=== PATIENT | female | born 1950 | race American Indian/Alaskan Native ===

== ENCOUNTER 2018-07-20 18:42 | Inpatient (IN) | payer MEDICARE ==
[2018-07-20 19:06] VITALS: BMI 27.0
--- NOTE | 2018-07-20 21:52 | CP.PCM.HP ---
History of Present Illness - History of Present Illness History of Present Illness: PMD: None Chief complaint: Left side weakness The patient was seen and examined in the Rehab unit with her present HPI: The Hx was obtained from patient, her and after review of the medical records. She is a 68 years old female with hx of HTN treated with Garlic tablets, admitted at the [facility] on the 07/19/18 with 2 days of left upper and lower extremity weakness. She was diagnosed with an acute CVA. She is transferred to the [facility] for continued care and rehabilitation.She refers some improvement in the weakness of the left upper and lower extremities. PMH: HTN; PSH: Fibroid removal SH: No smoking; no illegal drug use; occasional glass of wine; Live with FH: Mother with Dm and HTN Allergies: NKDA Seasonal Allergies Medication: Reviewed Present on Admission - Present on Admission Any Indicators Present on Admission: No History of DVT/PE: No History of Uncontrolled Diabetes: No Urinary Catheter: No Decubitus Ulcer Present: No Review of Systems - Constitutional Constitutional: absent: Anorexia, Chills, Fever, Headache - EENT Eyes: Requires Corrective Lenses. absent: Diplopia, Discharge, Floaters Ears: absent: Decreased Hearing, Ear Discharge, Tinnitus Nose/Mouth/Throat: absent: Epistaxis, Nasal Congestion, Nasal Discharge, Sinus Pressure - Cardiovascular Cardiovascular: absent: Chest Pain, Dyspnea, Edema, Lightheadedness - Respiratory Respiratory: absent: Cough, Dyspnea, Wheezing, Stridor - Gastrointestinal Gastrointestinal: absent: Abdominal Pain, Cramping, Diarrhea, Nausea, Vomiting - Genitourinary Genitourinary: absent: Dysuria, Flank Pain, Urinary Frequency - Musculoskeletal Musculoskeletal: Muscle Weakness. absent: Arthralgias - Integumentary Integumentary: absent: Skin Ulcer, Sores, Striae, Swelling - Neurological Neurological: Focal Weakness. absent: Abnormal Speech, Confusion, Dizziness, Headaches, Weakness - Psychiatric Psychiatric: absent: Anxiety, Depression, Panic Attacks - Endocrine Endocrine: absent: Palpitations, Polydipsia, Polyphagia, Polyuria - Hematologic/Lymphatic Hematologic: absent: Easy Bleeding, Easy Bruising Past Patient History - Past Medical History & Family History Past Medical History?: Yes - Past Social History Smoking Status: Never Smoked Chewing Tobacco Use: No Cigar Use: No Alcohol: Occasional Drugs: Denies Home Situation {Lives}: With Family - CARDIAC Hx Hypertension: Yes - PULMONARY Hx Respiratory Disorders: No - NEUROLOGICAL Hx Neurological Disorder: No - HEENT Hx HEENT Problems: No - RENAL Hx Chronic Kidney Disease: No - ENDOCRINE/METABOLIC Hx Endocrine Disorders: No - HEMATOLOGICAL/ONCOLOGICAL Hx Blood Disorders: No - INTEGUMENTARY Hx Dermatological Problems: No - MUSCULOSKELETAL/RHEUMATOLOGICAL Hx Musculoskeletal Disorders: No - GASTROINTESTINAL Hx Gastrointestinal Disorders: No - GENITOURINARY/GYNECOLOGICAL Hx Genitourinary Disorders: No - PSYCHIATRIC Hx Psychophysiologic Disorder: No - SURGICAL HISTORY Hx Surgeries: No - ANESTHESIA Hx Anesthesia: No Meds Allergies/Adverse Reactions: Allergies Allergy/AdvReac Type Severity Reaction Status Date / Time sesonal allergy Allergy SNEEZING Uncoded 07/20/18 18:58 Physical Exam - Constitutional Appears: No Acute Distress - Head Exam Head Exam: ATRAUMATIC, NORMAL INSPECTION, NORMOCEPHALIC - Eye Exam Eye Exam: EOMI, Normal appearance Pupil Exam: Miosis, NORMAL ACCOMODATION - ENT Exam ENT Exam: Normal Exam - Neck Exam Neck exam: Positive for: Full Rom, Lymphadenopathy, Thyromegaly - Respiratory Exam Respiratory Exam: Clear to Auscultation Bilateral. absent: Rales, Rhonchi, Whee zes - GI/Abdominal Exam GI & Abdominal Exam: Normal Bowel Sounds, Soft. absent: Hypoactive Bowel Sounds, Mass, Tenderness - Rectal Exam Rectal Exam: Deferred - Extremities Exam Extremities exam: Positive for: normal inspection. Negative for: calf tenderness, pedal edema - Back Exam Back exam: NORMAL INSPECTION. 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 Moderate stenosis at the distal right cerevical artery also seen. CT angiogram of Neck Status: Report reviewed by me Additional comment: IMPRESSION No evidence of cervical large vessel occlusion or high- grade stenosis with O% stenosis at the ICA origin MRI BRAIN with out Contrast Status: Report reviewed by me Additional comment: IMPRESSION: Small acute right ventral medullary infarct. Assessment & Plan - Assessment and Plan (Free Text) Plan: 68 years old female with hx of HTN treated with Garlic tablets, admitted at the [facility] on the 07/19/18 with 2 days of left upper and lower extremity weakness. She was diagnosed with an acute CVA. She is transferred to the [facility] for continued care and rehabilitation.She refers some improvement in the weakness of the left upper and lower extremities. #. Acute Right CVA with left side weakness - Consult Dr Zheng Youth Coordinator - Consult Dr Hernandes Neurology - ASA - The patient refuses lipitor - OT/PT #. HTN Uncontrolled - Amlodipine - Lisinopril - Follow blood pressures - follow Electrolytes an d #. DVT prophylaxis with Lovenox #. Code Status: Full - Date & Time Date: 07/20/18 Time: 21:52
[2018-07-21 06:27] LABS: BASO # 0.1 K/uL (0.0-0.2); BASO % 0.8 % (0.0-2.0); EOS # 0.3 K/uL (0.0-0.7); EOS % 3.6 % (0.0-4.0); HEMOGLOBIN 12.3 g/dL (12.0-16.0); LYMPH # 3.6 K/uL (1.0-4.3); LYMPH % 40.5 % (20.0-40.0); MEAN CELL VOLUME 82.2 fl (81.0-99.0); MEAN CORPUSCULAR HEMOGLOBIN 28.9 pg (27.0-31.0); MEAN CORPUSCULAR HGB CONC 35.2 g/dL (33.0-37.0); MEAN PLATELET VOLUME 8.5 fl (7.2-11.7); MONO # 0.6 K/uL (0.0-0.8); MONO % 6.4 % (0.0-10.0); NEUT # 4.3 K/uL (1.8-7.0); NEUT % 48.7 % (50.0-75.0); NRBC % 0.1 % (0.0-0.0); RBC 4.24 Mil/uL (3.80-5.20); RED CELL DISTRIBUTION WIDTH 14.9 % (11.5-14.5); WHITE BLOOD COUNT 8.8 K/uL (4.8-10.8)
[2018-07-21 06:43] LABS: CALCIUM 9.7 mg/dL (8.4-10.2); GFR NON-AFRICAN AMERICAN > 60
[2018-07-21 06:48] LABS: INR 1.1; PROTHROMBIN TIME 12.5 Seconds (9.8-13.1)
[2018-07-21 06:49] LABS: PARTIAL THROMBOPLASTIN TIME 32.5 Seconds (25.6-37.1)
[2018-07-21 06:59] LABS: BLOOD UREA NITROGEN 18 mg/dl (7-17)
[2018-07-21] MEDS: Enoxaparin 40 mg Syringe SC SCH (08:47)
--- NOTE | 2018-07-21 19:45 | CP.PCM.CON ---
History of Present Illness - History of Present Illness History of Present Illness: 68 year old female with diagnosis of Acute CVa, htn history of fibroid removal admitted for Acute rehab Review of Systems - Constitutional Constitutional: Weakness - Musculoskeletal Musculoskeletal: Limited Range of Motion, Muscle Weakness Past Patient History - Past Medical History & Family History Past Medical History?: Yes - Past Social History Smoking Status: Never Smoked Chewing Tobacco Use: No Cigar Use: No Alcohol: Occasional Drugs: Denies Home Situation {Lives}: With Family - CARDIAC Hx Hypertension: Yes - PULMONARY Hx Respiratory Disorders: No - NEUROLOGICAL Hx Neurological Disorder: No - HEENT Hx HEENT Problems: No - RENAL Hx Chronic Kidney Disease: No - ENDOCRINE/METABOLIC Hx Endocrine Disorders: No - HEMATOLOGICAL/ONCOLOGICAL Hx Blood Disorders: No - INTEGUMENTARY Hx Dermatological Problems: No - MUSCULOSKELETAL/RHEUMATOLOGICAL Hx Musculoskeletal Disorders: No - GASTROINTESTINAL Hx Gastrointestinal Disorders: No - GENITOURINARY/GYNECOLOGICAL Hx Genitourinary Disorders: No - PSYCHIATRIC Hx Psychophysiologic Disorder: No - SURGICAL HISTORY Hx Surgeries: No - ANESTHESIA Hx Anesthesia: No Meds Allergies/Adverse Reactions: Allergies Allergy/AdvReac Type Severity Reaction Status Date / Time No Known Allergies Allergy Verified 07/21/18 03:12 - Medications Medications: Current Medications Amlodipine Besylate (Norvasc) 10 mg PO DAILY [facility] Last Admin: 07/21/18 08:47 Dose: 10 mg Aspirin (Ecotrin) 81 mg PO DAILY [facility] Last Admin: 07/21/18 08:47 Dose: 81 mg Enoxaparin Sodium (Lovenox) 40 mg SC DAILY [facility]; Protocol Last Admin: 07/21/18 08:47 Dose: 40 mg Lisinopril (Zestril) 10 mg PO DAILY [facility] Last Admin: 07/21/18 08:39 Dose: 10 mg Physical Exam - Constitutional Appears: Well, No Acute Distress - Head Exam Head Exam: ATRAUMATIC, NORMAL INSPECTION, NORMOCEPHALIC - Eye Exam Eye Exam: EOMI, Normal appearance Pupil Exam: NORMAL ACCOMODATION, PERRL - ENT Exam ENT Exam: Mucous Membranes Moist, Normal Exam - Neck Exam Neck exam: Positive for: Normal Inspection - Respiratory Exam Respiratory Exam: Clear to Auscultation Bilateral, NORMAL BREATHING PATTERN - Cardiovascular Exam Cardiovascular Exam: REGULAR RHYTHM - GI/Abdominal Exam GI & Abdominal Exam: Normal Bowel Sounds - Rectal Exam Rectal Exam: NORMAL INSPECTION - Exam External exam: NORMAL EXTERNAL EXAM - Extremities Exam Extremities exam: Positive for: normal inspection Additional comments: muscle strength 3/5 - Back Exam Back exam: NORMAL INSPECTION - Neurological Exam Neurological exam: Alert, CN II-XII Intact - Psychiatric Exam Psychiatric exam: Normal Affect, Normal Mood - Skin Skin Exam: Dry, Normal Color, Warm Results - Vital Signs Recent Vital Signs: Last Vital Signs Temp 97.3 F L 07/21/18 08:38 Pulse 90 07/21/18 08:47 Resp 22 07/21/18 08:38 BP 178/81 H 07/21/18 08:47 Pulse Ox 98 07/21/18 08:38 - Labs Result Diagrams: 07/21/18 05:30 07/21/18 05:30 Labs: Laboratory Results - last 24 hr 07/21/18 07/21/18 07/21/18 05:30 05:30 05:30 WBC 8.8 RBC 4.24 Hgb 12.3 Hct 34.8 MCV 82.2 MCH 28.9 MCHC 35.2 RDW 14.9 H Plt Count 266 MPV 8.5 Neut % (Auto) 48.7 L Lymph % (Auto) 40.5 H Guthrie % (Auto) 6.4 Eos % (Auto) 3.6 Baso % (Auto) 0.8 Neut # (Auto) 4.3 Lymph # (Auto) 3.6 Guthrie # (Auto) 0.6 Eos # (Auto) 0.3 Baso # (Auto) 0.1 PT 12.5 INR 1.1 APTT 32.5 Sodium 143 Potassium 3.6 Chloride 105 Carbon Dioxide 30 Anion Gap 12 BUN 18 H Creatinine 0.9 Est GFR ( Amer) > 60 Est GFR (Non-Af Amer) > 60 Random Glucose 107 H Calcium 9.7 Assessment & Plan (1) CVA (cerebral vascular accident) Assessment and Plan: Also with diagnosis of HTn, plan for physical, occupational, rec and speech therapy program. To write overall plan of care Status: Acute
--- NOTE | 2018-07-21 19:50 | PCM.OPOC ---
Physiatry Overall Plan of Care - Overall Plan of Care Estimated Length of Stay in Weeks: 3 Rehab Impairment: Mobility, Gait, Cognition, Balance, Coordination Etiologic Diagnosis: Cerebrovascular Accident - Anticipated Interventions Physical Therapy:: Yes Occupational Therapy:: Yes Speech Therapy:: Yes Recreational Therapy:: Yes - Therapy Goals Bed Mobility: Independent Ambulation: Supervision Functional Positional Changes:: Independent - Functional Outcomes Functional Outcomes: fair - Discharge Plan Identification of Barriers to Discharge: Cognition Discharge Destination: Home
--- NOTE | 2018-07-21 19:53 | CP.PCM.PN ---
Subjective - Date & Time of Evaluation Date of Evaluation: 07/21/18 Time of Evaluation: 14:00 - Subjective Subjective: no acute complaints at present Objective - Vital Signs/Intake and Output Vital Signs (last 24 hours): Temp Pulse Resp BP Pulse Ox 97.3 F L 90 22 178/81 H 98 07/21/18 08:38 07/21/18 08:47 07/21/18 08:38 07/21/18 08:47 07/21/18 08:38 - Medications Medications: Current Medications Amlodipine Besylate (Norvasc) 10 mg PO DAILY [facility] Last Admin: 07/21/18 08:47 Dose: 10 mg Aspirin (Ecotrin) 81 mg PO DAILY [facility] Last Admin: 07/21/18 08:47 Dose: 81 mg Enoxaparin Sodium (Lovenox) 40 mg SC DAILY [facility]; Protocol Last Admin: 07/21/18 08:47 Dose: 40 mg Lisinopril (Zestril) 10 mg PO DAILY [facility] Last Admin: 07/21/18 08:39 Dose: 10 mg - Labs Labs: 07/21/18 05:30 07/21/18 05:30 PT 12.5 Seconds (9.8-13.1) 07/21/18 05:30 INR 1.1 07/21/18 05:30 APTT 32.5 Seconds (25.6-37.1) 07/21/18 05:30 - Head Exam Head Exam: ATRAUMATIC, NORMAL INSPECTION, NORMOCEPHALIC - Eye Exam Eye Exam: EOMI, Normal appearance Pupil Exam: NORMAL ACCOMODATION, PERRL - ENT Exam ENT Exam: Mucous Membranes Moist, Normal Exam - Neck Exam Neck Exam: Full ROM, Normal Inspection - Respiratory Exam Respiratory Exam: Clear to Ausculation Bilateral, NORMAL BREATHING PATTERN - Cardiovascular Exam Cardiovascular Exam: REGULAR RHYTHM - GI/Abdominal Exam GI & Abdominal Exam: Soft, Normal Bowel Sounds - Rectal Exam Rectal Exam: NORMAL INSPECTION - Exam External exam: NORMAL EXTERNAL EXAM - Extremities Exam Extremities Exam: Full ROM, Normal Capillary Refill, Normal Inspection - Back Exam Back Exam: NORMAL INSPECTION - Neurological Exam Neurological Exam: Alert Neuro motor strength exam: Left Upper Extremity: 3, Right Upper Extremity: 3, Left Lower Extremity: 3, Right Lower Extremity: 3 - Psychiatric Exam Psychiatric exam: Normal Affect - Skin Skin Exam: Normal Color Assessment and Plan (1) CVA (cerebral vascular accident) Assessment & Plan: plan for range of motion, strengthening , transfers and gait training, adl eval and equipment eval. PT, Ot Rec and ST. Status: Acute
[2018-07-22] MEDS: Enoxaparin 40 mg Syringe SC SCH (08:55)
--- NOTE | 2018-07-22 13:59 | CP.PCM.PN ---
Subjective - Date & Time of Evaluation Date of Evaluation: 07/22/18 Time of Evaluation: 13:58 - Subjective Subjective: doing well hd stable no complaints nad Objective - Vital Signs/Intake and Output Vital Signs (last 24 hours): Temp Pulse Resp BP Pulse Ox 97.7 F 83 20 170/74 H 98 07/22/18 08:54 07/22/18 08:56 07/22/18 08:54 07/22/18 08:56 07/22/18 08:54 Intake and Output: GEN: WDWN, ALERT, COOPERATIVE HEENT: NCAT, PERRL, EOMI HEART: +S1+S2, RRR NO MRG LUNG: CTAB, NO WRR ABD: SOFT BSX4 NT ND NO HSM NO MASS EXT: WARM, WELL PERFUSED NEURO: AWAKE, ALERT, REFLEXES NORMAL SKIN: WARM DRY PSYCH: NORMAL MOOD NORMAL AFFECT - Medications Medications: Current Medications Amlodipine Besylate (Norvasc) 10 mg PO DAILY [facility] Last Admin: 07/22/18 08:56 Dose: 10 mg Aspirin (Ecotrin) 81 mg PO DAILY [facility] Last Admin: 07/22/18 08:55 Dose: 81 mg Enoxaparin Sodium (Lovenox) 40 mg SC DAILY [facility]; Protocol Last Admin: 07/22/18 08:55 Dose: 40 mg Lisinopril (Zestril) 10 mg PO DAILY [facility] Last Admin: 07/22/18 08:56 Dose: 10 mg - Labs Labs: 07/21/18 05:30 07/21/18 05:30 PT 12.5 Seconds (9.8-13.1) 07/21/18 05:30 INR 1.1 07/21/18 05:30 APTT 32.5 Seconds (25.6-37.1) 07/21/18 05:30 Assessment and Plan - Assessment and Plan (Free Text) Plan: 68 years old female with hx of HTN treated with Garlic tablets, admitted at the [facility] on the 07/19/18 with 2 days of left upper and lower extremity weakness. She was diagnosed with an acute CVA. She is transferred to the [facility] for continued care and rehabilitation.She refers some improvement in the weakness of the left upper and lower extremities. #. Acute Right CVA with left side weakness - Consult Dr Zheng Flight Attendant - Consult Dr Hernandes Neurology - ASA - The patient refuses lipitor - OT/PT #. HTN Uncontrolled - Amlodipine - Lisinopril - Follow blood pressures - follow Electrolytes an d #. DVT prophylaxis with Lovenox #. Code Status: Full
--- NOTE | 2018-07-22 15:06 | CP.PCM.PN ---
Subjective - Date & Time of Evaluation Date of Evaluation: 07/22/18 Time of Evaluation: 12:30 - Subjective Subjective: no acute complaints of pain Objective - Vital Signs/Intake and Output Vital Signs (last 24 hours): Temp Pulse Resp BP Pulse Ox 97.7 F 83 20 170/74 H 98 07/22/18 08:54 07/22/18 08:56 07/22/18 08:54 07/22/18 08:56 07/22/18 08:54 - Medications Medications: Current Medications Amlodipine Besylate (Norvasc) 10 mg PO DAILY [facility] Last Admin: 07/22/18 08:56 Dose: 10 mg Aspirin (Ecotrin) 81 mg PO DAILY [facility] Last Admin: 07/22/18 08:55 Dose: 81 mg Enoxaparin Sodium (Lovenox) 40 mg SC DAILY [facility]; Protocol Last Admin: 07/22/18 08:55 Dose: 40 mg Lisinopril (Zestril) 10 mg PO DAILY [facility] Last Admin: 07/22/18 08:56 Dose: 10 mg - Labs Labs: 07/21/18 05:30 07/21/18 05:30 PT 12.5 Seconds (9.8-13.1) 07/21/18 05:30 INR 1.1 07/21/18 05:30 APTT 32.5 Seconds (25.6-37.1) 07/21/18 05:30 - Head Exam Head Exam: ATRAUMATIC, NORMAL INSPECTION, NORMOCEPHALIC - Eye Exam Eye Exam: EOMI, Normal appearance, PERRL Pupil Exam: NORMAL ACCOMODATION - ENT Exam ENT Exam: Mucous Membranes Moist, Normal Exam - Neck Exam Neck Exam: Full ROM, Normal Inspection - Respiratory Exam Respiratory Exam: Clear to Ausculation Bilateral, NORMAL BREATHING PATTERN - Cardiovascular Exam Cardiovascular Exam: REGULAR RHYTHM - GI/Abdominal Exam GI & Abdominal Exam: Soft, Normal Bowel Sounds - Rectal Exam Rectal Exam: NORMAL INSPECTION - Exam External exam: NORMAL EXTERNAL EXAM - Extremities Exam Extremities Exam: Full ROM, Normal Capillary Refill - Back Exam Back Exam: NORMAL INSPECTION - Neurological Exam Neurological Exam: Alert, Awake Neuro motor strength exam: Left Upper Extremity: 3, Right Upper Extremity: 3, Left Lower Extremity: 3, Right Lower Extremity: 3 - Psychiatric Exam Psychiatric exam: Normal Affect, Normal Mood - Skin Skin Exam: Dry, Intact Assessment and Plan (1) CVA (cerebral vascular accident) Assessment & Plan: plan for physical, occupational and rec therapy program Status: Acute
[2018-07-23] MEDS: Enoxaparin 40 mg Syringe SC SCH (08:41)
[2018-07-24 08:41] LABS: HEMOGLOBIN 13.6 g/dL (12.0-16.0); MEAN CELL VOLUME 82.8 fl (81.0-99.0); MEAN CORPUSCULAR HEMOGLOBIN 29.1 pg (27.0-31.0); MEAN CORPUSCULAR HGB CONC 35.1 g/dL (33.0-37.0); RBC 4.67 Mil/uL (3.80-5.20); RED CELL DISTRIBUTION WIDTH 15.1 % (11.5-14.5); WHITE BLOOD COUNT 9.4 K/uL (4.8-10.8)
[2018-07-24] MEDS: Enoxaparin 40 mg Syringe SC SCH (08:58)
[2018-07-24 09:05] LABS: BLOOD UREA NITROGEN 23 mg/dl (7-17); CALCIUM 10.1 mg/dL (8.4-10.2); GFR NON-AFRICAN AMERICAN > 60
[2018-07-25] MEDS: Enoxaparin 40 mg Syringe SC SCH (08:26)
--- NOTE | 2018-07-25 12:26 | CP.PCM.PN ---
Subjective - Date & Time of Evaluation Date of Evaluation: 07/25/18 Time of Evaluation: 12:26 - Subjective Subjective: doing well no complaints hd stable nad Objective - Vital Signs/Intake and Output Vital Signs (last 24 hours): Temp Pulse Resp BP Pulse Ox 98.1 F 85 19 159/79 H 100 07/25/18 08:26 07/25/18 08:49 07/25/18 08:26 07/25/18 08:26 07/25/18 08:26 Intake and Output: Vitals Reviewed GEN: WDWN, alert, cooperative HEENT: NCAT, PERRL, EOMI HEART: RRR, +S1S2, NO MRG LUNG: CTAB, NO WRR ABD: soft, NT, ND, No HSM, No masses EXT: normal pedal pulses NEURO: awake, alert SKIN: warm, dry PSYCH: normal mood, normal affect - Medications Medications: Current Medications Amlodipine Besylate (Norvasc) 10 mg PO DAILY [facility] Last Admin: 07/25/18 08:26 Dose: 10 mg Aspirin (Ecotrin) 81 mg PO DAILY [facility] Last Admin: 07/25/18 08:27 Dose: 81 mg Enoxaparin Sodium (Lovenox) 40 mg SC DAILY [facility]; Protocol Last Admin: 07/25/18 08:26 Dose: 40 mg Lisinopril (Zestril) 10 mg PO DAILY [facility] Last Admin: 07/25/18 08:26 Dose: 10 mg - Labs Labs: 07/24/18 08:15 07/24/18 08:15 PT 12.5 Seconds (9.8-13.1) 07/21/18 05:30 INR 1.1 07/21/18 05:30 APTT 32.5 Seconds (25.6-37.1) 07/21/18 05:30 Assessment and Plan - Assessment and Plan (Free Text) Plan: 68 years old female with hx of HTN treated with Garlic tablets, admitted at the [facility] on the 07/19/18 with 2 days of left upper and lower extremity weakness. She was diagnosed with an acute CVA. She is transferred to the [facility] for continued care and rehabilitation.She refers some improvement in the weakness of the left upper and lower extremities. #. Acute Right CVA with left side weakness - Consult Dr Zheng Chair Pad Maker - Consult Dr Hernandes Neurology - ASA - The patient refuses lipitor - OT/PT #. HTN Uncontrolled - Amlodipine - Lisinopril - Follow blood pressures - follow Electrolytes an d #. DVT prophylaxis with Lovenox #. Code Status: Full
--- NOTE | 2018-07-25 12:37 | CP.PCM.PN ---
Subjective - Date & Time of Evaluation Date of Evaluation: 07/23/18 Time of Evaluation: 15:00 - Subjective Subjective: no acute complaints at present Objective - Vital Signs/Intake and Output Vital Signs (last 24 hours): Temp Pulse Resp BP Pulse Ox 98.1 F 85 19 159/79 H 100 07/25/18 08:26 07/25/18 08:49 07/25/18 08:26 07/25/18 08:26 07/25/18 08:26 - Medications Medications: Current Medications Amlodipine Besylate (Norvasc) 10 mg PO DAILY [facility] Last Admin: 07/25/18 08:26 Dose: 10 mg Aspirin (Ecotrin) 81 mg PO DAILY [facility] Last Admin: 07/25/18 08:27 Dose: 81 mg Enoxaparin Sodium (Lovenox) 40 mg SC DAILY [facility]; Protocol Last Admin: 07/25/18 08:26 Dose: 40 mg Lisinopril (Zestril) 10 mg PO DAILY [facility] Last Admin: 07/25/18 08:26 Dose: 10 mg - Labs Labs: 07/24/18 08:15 07/24/18 08:15 PT 12.5 Seconds (9.8-13.1) 07/21/18 05:30 INR 1.1 07/21/18 05:30 APTT 32.5 Seconds (25.6-37.1) 07/21/18 05:30 - Head Exam Head Exam: ATRAUMATIC, NORMAL INSPECTION, NORMOCEPHALIC - Eye Exam Eye Exam: EOMI, Normal appearance Pupil Exam: NORMAL ACCOMODATION, PERRL - ENT Exam ENT Exam: Mucous Membranes Moist, Normal Exam - Neck Exam Neck Exam: Normal Inspection - Respiratory Exam Respiratory Exam: Clear to Ausculation Bilateral, NORMAL BREATHING PATTERN - Cardiovascular Exam Cardiovascular Exam: REGULAR RHYTHM - GI/Abdominal Exam GI & Abdominal Exam: Soft, Normal Bowel Sounds - Rectal Exam Rectal Exam: NORMAL INSPECTION - Exam External exam: NORMAL EXTERNAL EXAM - Extremities Exam Extremities Exam: Full ROM, Normal Inspection - Back Exam Back Exam: NORMAL INSPECTION - Neurological Exam Neurological Exam: Alert, Awake - Psychiatric Exam Psychiatric exam: Normal Affect - Skin Skin Exam: Normal Color Assessment and Plan (1) CVA (cerebral vascular accident) Assessment & Plan: plan for pt, ot rec and St equipment eval and Dc planning Status: Acute
--- NOTE | 2018-07-25 13:33 | CP.PCM.CON ---
History of Present Illness - History of Present Illness History of Present Illness: Neurology consult dictated. Please see full report Dr marte Past Patient History - Past Medical History & Family History Past Medical History?: Yes - Past Social History Smoking Status: Never Smoked Chewing Tobacco Use: No Cigar Use: No Alcohol: Occasional Drugs: Denies Home Situation {Lives}: With Family - CARDIAC Hx Hypertension: Yes - PULMONARY Hx Respiratory Disorders: No - NEUROLOGICAL Hx Neurological Disorder: No - HEENT Hx HEENT Problems: No - RENAL Hx Chronic Kidney Disease: No - ENDOCRINE/METABOLIC Hx Endocrine Disorders: No - HEMATOLOGICAL/ONCOLOGICAL Hx Blood Disorders: No - INTEGUMENTARY Hx Dermatological Problems: No - MUSCULOSKELETAL/RHEUMATOLOGICAL Hx Musculoskeletal Disorders: No - GASTROINTESTINAL Hx Gastrointestinal Disorders: No - GENITOURINARY/GYNECOLOGICAL Hx Genitourinary Disorders: No - PSYCHIATRIC Hx Psychophysiologic Disorder: No - SURGICAL HISTORY Hx Surgeries: No - ANESTHESIA Hx Anesthesia: No Meds Allergies/Adverse Reactions: Allergies Allergy/AdvReac Type Severity Reaction Status Date / Time No Known Allergies Allergy Verified 07/21/18 03:12 - Medications Medications: Current Medications Amlodipine Besylate (Norvasc) 10 mg PO DAILY [facility] Last Admin: 07/25/18 08:26 Dose: 10 mg Aspirin (Ecotrin) 81 mg PO DAILY [facility] Last Admin: 07/25/18 08:27 Dose: 81 mg Enoxaparin Sodium (Lovenox) 40 mg SC DAILY [facility]; Protocol Last Admin: 07/25/18 08:26 Dose: 40 mg Lisinopril (Zestril) 10 mg PO DAILY [facility] Last Admin: 07/25/18 08:26 Dose: 10 mg Results - Vital Signs Recent Vital Signs: Last Vital Signs Temp 98.1 F 07/25/18 08:26 Pulse 85 07/25/18 08:49 Resp 19 07/25/18 08:26 BP 159/79 H 07/25/18 08:26 Pulse Ox 100 07/25/18 08:26 - Labs Result Diagrams: 07/24/18 08:15 07/24/18 08:15
[2018-07-26] MEDS: Enoxaparin 40 mg Syringe SC SCH (08:02)
--- NOTE | 2018-07-26 09:15 | CON ---
DATE: 07/25/2018 NEUROLOGY CONSULTATION Consult is called for the patient who is now in [facility] by Dr. Alber Self. HISTORY OF PRESENT ILLNESS: The patient is a 68-year-old woman with past medical history of hypertension who was admitted to [facility] on 07/19/2018 with two days of right upper and lower extremity weakness, strength being 3/5. She was diagnosed with acute right MCA stroke. Stroke workup was completed. She was sent home on aspirin and Plavix, and the patient was sent to [facility]. In the hospital, the patient has been doing well. She has been undergoing rehab with no other complaints. The day that I saw her, the patient had no headache, no new weakness, no aphasia, no dysarthrias and is doing well. REVIEW OF SYSTEMS: Negative for all 12 points. MEDICATIONS: She was on Norvasc 10 mg p.o. daily, aspirin 81 mg daily, Lovenox, and lisinopril 10 mg daily. PHYSICAL EXAMINATION: NEUROLOGIC: The patient was alert, awake, oriented x3. Cranial nerves II through XII were normal. Pupils were equal, round, reactive to light. Speech was fluent. She could name and repeat. Motor: Her left arm was 3-/5, left leg 3-/5. Decreased sensation to fine touch and pin in the left arm and left leg. The patient walked with hemiplegic gait. Reflexes were +3 in right upper and lower limbs, left were +2. Toes were downgoing. No clonus. There was no dysmetria. LABORATORY DATA: Labs are within normal limits. IMPRESSION: This is a 68-year-old woman with a right middle cerebral artery stroke several weeks prior. She is now undergoing rehabilitation. Currently, she does not have any new weakness. She is doing well and stable undergoing rehabilitation. Please re-consult as needed if Neurology can be of any other assistance. Thank you for this interesting consult. Mandy Hernandes MD
[2018-07-27 06:55] LABS: HEMOGLOBIN 12.4 g/dL (12.0-16.0); MEAN CELL VOLUME 83.9 fl (81.0-99.0); MEAN CORPUSCULAR HEMOGLOBIN 29.1 pg (27.0-31.0); MEAN CORPUSCULAR HGB CONC 34.7 g/dL (33.0-37.0); RBC 4.28 Mil/uL (3.80-5.20); RED CELL DISTRIBUTION WIDTH 14.9 % (11.5-14.5); WHITE BLOOD COUNT 8.7 K/uL (4.8-10.8)
[2018-07-27 07:01] LABS: BLOOD UREA NITROGEN 23 mg/dl (7-17); CALCIUM 9.9 mg/dL (8.4-10.2); GFR NON-AFRICAN AMERICAN > 60
--- NOTE | 2018-07-27 12:32 | PCM.PSYTMC ---
Acute Rehab Team Conference - - Vital Signs: Vital Signs (Last 8 Hours): Vital Signs 07/27/18 07/27/18 07/27/18 08:46 09:26 11:39 Temperature 98.2 F 98.2 F Pulse Rate 93 H 93 H 93 H Respiratory 20 20 Rate Blood Pressure 161/79 H 161/79 H 161/79 H O2 Sat by Pulse 96 Oximetry Pain: 0 - Precautions: Precautions: Fall Prevention, Aspiration, Cardiac/Pulmonary - Medications/Other Issues: Comment: on Lovenox 40mg/aspirin - Consults: Comment: - Toileting: Toileting: Minimal Assistance - Bladder Management: Bladder Pattern: Normal Voiding Method: Toilet Bladder Management: Minimal Assistance - Transfers: Transfers: Minimal Assistance - ADL's: ADL's: Minimal Assistance - Pain Management: Other Intervention:: denies - Patient/Family Teaching: Other Intervention:: safety measures, medication usage & possible adverse reactions - Goals/Time Frame: Comment: fall & aspiration precaution Physical Therapy - Bed Mobility Bed Mobility: Contact Guard - Transfers Wheelchair to Mat: Minimal Assistance Sit to Stand: Minimal Assistance - Ambulation Level of Assistance: Minimal Assistance Distance (ft.): 150 Assistive Devices: Narrow base quad cane Orthoses: L dorsiflexor assist MICHELET wrap - Stair Negotiation Stairs: Level of Assistance: Moderate Assistance Number of Stairs: 6 Stairs: Assistive Devices: Right Handrail - Standing Balance Static Stand: Contact Guard Assist - Insight/Carryover Insight/Carryover: Fair - Patient/Family Education Comment: CVA recovery, safety, POC, d/c recommendations - Assessment/Plan Assessment: PT tx sessions focusing on BLE strengthening exercises, balance and endurance activities, and functional mobility training. Trialed gait training with B handheld assist to promote step through gait pattern and increased gait speed. Pt will continue to benefit from skilled PT intervention to address deficits, reduce fall risk, and maximize functional independence. Pt plans to d/c home with her . Barriers: impaired insight to deficits - Goals Tiimeframe: 2 weeks Goals: Sit < > supine mod I. Sit < > stand transfers mod I with NBQC. Pt will ambulate 500 ft with NBQC and supervision. Pt will ascend/descend flight of stairs with handrail and supervision - Provider Physical Therapist:: Ivanna Falk License Number:: [id number] Occupational Therapy - Arousal/Attention/Orientation Level of Consciousness: Awake, Alert Patient Orientation: Person, Place, Time - ADL/IADL Self Feeding: Set-up Help Grooming: Set-up Help Bathing-Upper Ext: Minimal Assistance Dressing-Upper Ext: Minimal Assistance Dressing-Lower Ext: Minimal Assistance - Sitting Balance Static Sitting: Supervision Dynamic Sitting: Requires supervision - Transfers Wheelchair to Bed Transfers: Contact Guard, Minimal Assistance Toilet Transfers: Contact Guard, Minimal Assistance - Wheelchair Management Level of Assistance: Minimal Assistance Distance (ft.): 150 - Upper Extremity Status Right Upper Extremity Comment: WFL Left Upper Extremity Comment: PROM WFLs. AROM 2+/5 shoulder, elbow, wrist, digits - Pain Pain (assessed during therapy session): 0 - Insight/Carryover Insight/Carryover: Fair - Patient/Family Education Comment: dme/ae education, cva recovery, safety awareness - Assessment/Plan Assessment: Patient is a 68 yo f s/p acute CVA. patient presenting LUE/LE weakness, decreased ROM/strength, impaired dynamic standing balance, impaired activity tolerance, impaired insight into defecits, decreased safety awarenes impacting pt;s ability to complete ADLs safely and effectively. patient making gains in therapy and is able to complete ub ADLs with supervsision , ub adls with ub bathing with min A, patient able to complete lb adls with min A. minimal assist is needed 2' to decreased rOM/strength LUE. recommend cont skilled OT s ervices 5-6x/week as per plan of care. - Goals Timeframe: 1 week - Provider Occupational Therapist:: Jocelyne Mary License Number: [id number] Recreational Therapy - Participation Participation: Participates in Individual and/or Group Sessions - Attendance Attendance: 3-5 times per week - Activities Leisure Activities: Cards and Games - Socialization Level of Socialization: Initiates/interacts freely with care givers and peer - Diversional Time Diversional Time: reading, listening to music - Assessment Assessment/Plan: Pt is agreeable to participate in recreation therapy sessions throughout stay on unit. Pt has participated in sequencing and direction following tasks such as guess who, connect four, and kings in the corner. Pt demonstrated improved direction following, turn taking, sequencing, and recalls task rules. Pt will continue to benefit from participating in recreation therapy sessions to improve sequencing, direction following, and leisure awareness level. Problems Currently Limiting Participation: L side weakness UE and LE, decrease leisure awareness level, anxiety Goals and Time Frame: Pt will be encouraged to participate in 1:1 and group recreation therapy sessions 3-5x week to improve leisure awareness level, attention to task, direction following, arousal level, mood state, and decrease anxiety level. - Provider Therapist: Megan Mir Nutrition - Current Diet Current Diet/Supplement/Feedings: 2 gram Na low fat/low cholesterol thin liquids - Appetite Percent Meal Consumed: 75-100% - Assessment/Goals/Time Frame Assessments/Goals/Time Frame: Pt at moderate nutritional risk. goal:1. Pt to consume 75-100% of meals. Follow-up due on 07/28/2018 - Provider Provider: Belinda Degroot Case Management - Discharge Plan Discharge Plan: Home with significant other/family Rehabilitation Plan - Treatment Plan Treatment Plan: Physical Therapy, Occupational Therapy, Speech, Dietary - Recommendation Recommendation: Physical Therapy, Occupational Therapy, Dietary, Patient/Family Education - Discharge Plan Discharge to: Home (08/04)
[2018-07-27] MEDS: Enoxaparin 40 mg Syringe SC SCH (13:03)
--- NOTE | 2018-07-27 13:09 | CP.PCM.PN ---
Subjective - Date & Time of Evaluation Date of Evaluation: 07/24/18 Time of Evaluation: 11:00 - Subjective Subjective: NO ACUTE NECK OR BACK PAIN Objective - Vital Signs/Intake and Output Vital Signs (last 24 hours): Temp Pulse Resp BP Pulse Ox 98.2 F 93 H 20 161/79 H 96 07/27/18 11:39 07/27/18 11:39 07/27/18 11:39 07/27/18 11:39 07/27/18 09:26 - Medications Medications: Current Medications Amlodipine Besylate (Norvasc) 10 mg PO DAILY [facility] Last Admin: 07/27/18 08:46 Dose: 10 mg Aspirin (Ecotrin) 81 mg PO DAILY [facility] Last Admin: 07/27/18 08:46 Dose: 81 mg Enoxaparin Sodium (Lovenox) 40 mg SC DAILY [facility]; Protocol Last Admin: 07/27/18 13:03 Dose: 40 mg Lisinopril (Zestril) 10 mg PO DAILY [facility] Last Admin: 07/27/18 08:46 Dose: 10 mg - Labs Labs: 07/27/18 05:50 07/27/18 05:50 PT 12.5 Seconds (9.8-13.1) 07/21/18 05:30 INR 1.1 07/21/18 05:30 APTT 32.5 Seconds (25.6-37.1) 07/21/18 05:30 - Head Exam Head Exam: ATRAUMATIC, NORMAL INSPECTION, NORMOCEPHALIC - Eye Exam Eye Exam: EOMI, Normal appearance, PERRL Pupil Exam: NORMAL ACCOMODATION - ENT Exam ENT Exam: Mucous Membranes Moist, Normal Exam - Neck Exam Neck Exam: Normal Inspection - Respiratory Exam Respiratory Exam: Clear to Ausculation Bilateral, NORMAL BREATHING PATTERN - Cardiovascular Exam Cardiovascular Exam: REGULAR RHYTHM - GI/Abdominal Exam GI & Abdominal Exam: Soft - Rectal Exam Rectal Exam: NORMAL INSPECTION - Exam External exam: NORMAL EXTERNAL EXAM - Extremities Exam Extremities Exam: Full ROM, Normal Capillary Refill - Back Exam Back Exam: NORMAL INSPECTION - Neurological Exam Neurological Exam: Alert, Awake Neuro motor strength exam: Left Upper Extremity: 2/1, Left Lower Extremity: 2/1 - Psychiatric Exam Psychiatric exam: Normal Affect, Normal Mood - Skin Skin Exam: Dry, Intact Assessment and Plan (1) CVA (cerebral vascular accident) Assessment & Plan: PLAN FOR PHYSICAL, OCCUPATIONAL, REC AND SPEECH THERAPY Status: Acute
--- NOTE | 2018-07-27 13:12 | CP.PCM.PN ---
Subjective - Date & Time of Evaluation Date of Evaluation: 07/26/18 Time of Evaluation: 13:00 - Subjective Subjective: NO ACUTE NECK OR BACK PAIN, STILL WITH LEG WEAKNESS AND ARM WEAKNESS Objective - Vital Signs/Intake and Output Vital Signs (last 24 hours): Temp Pulse Resp BP Pulse Ox 98.2 F 93 H 20 161/79 H 96 07/27/18 11:39 07/27/18 11:39 07/27/18 11:39 07/27/18 11:39 07/27/18 09:26 - Medications Medications: Current Medications Amlodipine Besylate (Norvasc) 10 mg PO DAILY [facility] Last Admin: 07/27/18 08:46 Dose: 10 mg Aspirin (Ecotrin) 81 mg PO DAILY [facility] Last Admin: 07/27/18 08:46 Dose: 81 mg Enoxaparin Sodium (Lovenox) 40 mg SC DAILY [facility]; Protocol Last Admin: 07/27/18 13:03 Dose: 40 mg Lisinopril (Zestril) 10 mg PO DAILY [facility] Last Admin: 07/27/18 08:46 Dose: 10 mg - Labs Labs: 07/27/18 05:50 07/27/18 05:50 PT 12.5 Seconds (9.8-13.1) 07/21/18 05:30 INR 1.1 07/21/18 05:30 APTT 32.5 Seconds (25.6-37.1) 07/21/18 05:30 - Head Exam Head Exam: ATRAUMATIC, NORMAL INSPECTION, NORMOCEPHALIC - Eye Exam Eye Exam: EOMI, Normal appearance, PERRL Pupil Exam: NORMAL ACCOMODATION - ENT Exam ENT Exam: Mucous Membranes Moist, Normal Exam - Neck Exam Neck Exam: Full ROM, Normal Inspection - Respiratory Exam Respiratory Exam: Clear to Ausculation Bilateral, NORMAL BREATHING PATTERN - Cardiovascular Exam Cardiovascular Exam: REGULAR RHYTHM - GI/Abdominal Exam GI & Abdominal Exam: Soft, Normal Bowel Sounds - Rectal Exam Rectal Exam: NORMAL INSPECTION - Exam External exam: NORMAL EXTERNAL EXAM - Extremities Exam Extremities Exam: Full ROM, Normal Capillary Refill - Back Exam Back Exam: NORMAL INSPECTION - Neurological Exam Neurological Exam: Alert, Awake Neuro motor strength exam: Left Upper Extremity: 2/1, Left Lower Extremity: 2/1 - Psychiatric Exam Psychiatric exam: Normal Affect, Normal Mood - Skin Skin Exam: Dry, Normal Color Assessment and Plan (1) CVA (cerebral vascular accident) Assessment & Plan: PLAN FOR RANGE OF MOTION, STRENGHTENING TRANSFERS AND GAIT TRAINING, SPEECH THERAPY AND EQUIPMENT EVAL FOR LEFT FOOT BRACE Status: Acute
--- NOTE | 2018-07-27 13:15 | CP.PCM.PN ---
Subjective - Date & Time of Evaluation Date of Evaluation: 07/27/18 Time of Evaluation: 12:15 - Subjective Subjective: NO ACUTE COMPLAINTS OF PAIN, STILL WITH WEAKNESS Objective - Vital Signs/Intake and Output Vital Signs (last 24 hours): Temp Pulse Resp BP Pulse Ox 98.2 F 93 H 20 161/79 H 96 07/27/18 11:39 07/27/18 11:39 07/27/18 11:39 07/27/18 11:39 07/27/18 09:26 - Medications Medications: Current Medications Amlodipine Besylate (Norvasc) 10 mg PO DAILY [facility] Last Admin: 07/27/18 08:46 Dose: 10 mg Aspirin (Ecotrin) 81 mg PO DAILY [facility] Last Admin: 07/27/18 08:46 Dose: 81 mg Enoxaparin Sodium (Lovenox) 40 mg SC DAILY [facility]; Protocol Last Admin: 07/27/18 13:03 Dose: 40 mg Lisinopril (Zestril) 10 mg PO DAILY [facility] Last Admin: 07/27/18 08:46 Dose: 10 mg - Labs Labs: 07/27/18 05:50 07/27/18 05:50 PT 12.5 Seconds (9.8-13.1) 07/21/18 05:30 INR 1.1 07/21/18 05:30 APTT 32.5 Seconds (25.6-37.1) 07/21/18 05:30 - Head Exam Head Exam: ATRAUMATIC, NORMAL INSPECTION, NORMOCEPHALIC - Eye Exam Eye Exam: EOMI, Normal appearance, PERRL Pupil Exam: NORMAL ACCOMODATION - ENT Exam ENT Exam: Mucous Membranes Moist, Normal Exam - Neck Exam Neck Exam: Full ROM, Normal Inspection - Respiratory Exam Respiratory Exam: NORMAL BREATHING PATTERN - Cardiovascular Exam Cardiovascular Exam: REGULAR RHYTHM - GI/Abdominal Exam GI & Abdominal Exam: Soft, Normal Bowel Sounds - Rectal Exam Rectal Exam: NORMAL INSPECTION - Exam External exam: NORMAL EXTERNAL EXAM - Extremities Exam Extremities Exam: Full ROM, Normal Capillary Refill, Normal Inspection - Back Exam Back Exam: NORMAL INSPECTION - Neurological Exam Neurological Exam: Alert Neuro motor strength exam: Left Upper Extremity: 2/1, Left Lower Extremity: 2/1 - Psychiatric Exam Psychiatric exam: Normal Affect, Normal Mood - Skin Skin Exam: Dry, Intact Assessment and Plan (1) CVA (cerebral vascular accident) Assessment & Plan: STATUS POST TEAM DISCUSSED dC PLANNING FOR dC FOR aug 06. FAMILY AND PATINET REFUSING SUBACUTE, HOME SERVICES AFTER dC LEFT ANKLE FOOT ORTHOSIS FOR PATIENT Status: Acute
--- NOTE | 2018-07-27 14:58 | CP.PCM.PN ---
Subjective - Date & Time of Evaluation Date of Evaluation: 07/27/18 Time of Evaluation: 12:20 - Subjective Subjective: Patient seen and examied. Patient still with left sided weakness but admitted improving. Objective - Vital Signs/Intake and Output Vital Signs (last 24 hours): Temp Pulse Resp BP Pulse Ox 98.2 F 93 H 20 161/79 H 96 07/27/18 11:39 07/27/18 11:39 07/27/18 11:39 07/27/18 11:39 07/27/18 09:26 - Medications Medications: Current Medications Amlodipine Besylate (Norvasc) 10 mg PO DAILY [facility] Last Admin: 07/27/18 08:46 Dose: 10 mg Aspirin (Ecotrin) 81 mg PO DAILY [facility] Last Admin: 07/27/18 08:46 Dose: 81 mg Enoxaparin Sodium (Lovenox) 40 mg SC DAILY [facility]; Protocol Last Admin: 07/27/18 13:03 Dose: 40 mg Lisinopril (Zestril) 10 mg PO DAILY [facility] Last Admin: 07/27/18 08:46 Dose: 10 mg - Labs Labs: 07/27/18 05:50 07/27/18 05:50 PT 12.5 Seconds (9.8-13.1) 07/21/18 05:30 INR 1.1 07/21/18 05:30 APTT 32.5 Seconds (25.6-37.1) 07/21/18 05:30 - Constitutional Appears: No Acute Distress - Head Exam Head Exam: ATRAUMATIC - Eye Exam Eye Exam: absent: Scleral icterus - ENT Exam ENT Exam: Mucous Membranes Moist - Neck Exam Neck Exam: absent: Meningismus - Respiratory Exam Respiratory Exam: absent: Rales, Rhonchi, Wheezes, Respiratory Distress - Cardiovascular Exam Cardiovascular Exam: REGULAR RHYTHM, +S1, +S2 - GI/Abdominal Exam GI & Abdominal Exam: Soft. absent: Tenderness - Rectal Exam Rectal Exam: Deferred - Neurological Exam Neurological Exam: Alert, Oriented x3 - Psychiatric Exam Psychiatric exam: Normal Affect - Skin Skin Exam: Dry, Intact Assessment and Plan - Assessment and Plan (Free Text) Assessment: 68 yo female with history of HTN but no medication was admitted at the [facility] on the 07/19/18 because of left sided weakness secondary to Acute CVA. She was transferred to Acute Rehab when hemodynamically and neurologically stable for therapy and continuation of medical management. 1. Acute Right CVA with left side weakness continue PT/OT refused statin continue ASA 2. HTN BP slightly elevated continue Amlodipine and Lisinopril 3. DVT prophylaxis on Lovenox
[2018-07-28] MEDS: Enoxaparin 40 mg Syringe SC SCH (08:52)
[2018-07-29] MEDS: Enoxaparin 40 mg Syringe SC SCH (08:39)
--- NOTE | 2018-07-29 12:25 | CP.PCM.PN ---
Subjective - Date & Time of Evaluation Date of Evaluation: 07/29/18 Time of Evaluation: 09:00 - Subjective Subjective: no acute complaints , feeling better Objective - Vital Signs/Intake and Output Vital Signs (last 24 hours): Temp Pulse Resp BP Pulse Ox 97.9 F 81 20 148/78 97 07/29/18 07:38 07/29/18 08:40 07/29/18 07:38 07/29/18 08:40 07/29/18 07:38 - Medications Medications: Current Medications Amlodipine Besylate (Norvasc) 10 mg PO DAILY [facility] BEDS [facility] Last Admin: 07/29/18 08:40 Dose: 10 mg Aspirin (Ecotrin) 81 mg PO DAILY [facility] 234 BEDS AT [facility] Last Admin: 07/29/18 08:39 Dose: 81 mg Enoxaparin Sodium (Lovenox) 40 mg SC DAILY [facility] 234 BEDS AT [facility]; Protocol Last Admin: 07/29/18 08:39 Dose: 40 mg Lisinopril (Zestril) 10 mg PO DAILY [facility] 234 BEDS AT [facility] Last Admin: 07/29/18 08:40 Dose: 10 mg - Labs Labs: 07/27/18 05:50 07/27/18 05:50 PT 12.5 Seconds (9.8-13.1) 07/21/18 05:30 INR 1.1 07/21/18 05:30 APTT 32.5 Seconds (25.6-37.1) 07/21/18 05:30 - Head Exam Head Exam: ATRAUMATIC, NORMAL INSPECTION, NORMOCEPHALIC - Eye Exam Eye Exam: EOMI, Normal appearance, PERRL Pupil Exam: NORMAL ACCOMODATION - ENT Exam ENT Exam: Mucous Membranes Moist, Normal Exam - Respiratory Exam Respiratory Exam: Clear to Ausculation Bilateral, NORMAL BREATHING PATTERN - Cardiovascular Exam Cardiovascular Exam: REGULAR RHYTHM - GI/Abdominal Exam GI & Abdominal Exam: Soft, Normal Bowel Sounds - Rectal Exam Rectal Exam: NORMAL INSPECTION - Exam Speculum exam: Erythema - Extremities Exam Extremities Exam: Full ROM, Normal Capillary Refill - Back Exam Back Exam: NORMAL INSPECTION - Neurological Exam Neurological Exam: Alert, Awake Neuro motor strength exam: Left Upper Extremity: 2/1, Left Lower Extremity: 2/1 - Psychiatric Exam Psychiatric exam: Normal Affect, Normal Mood - Skin Skin Exam: Dry, Intact Assessment and Plan (1) CVA (cerebral vascular accident) Assessment & Plan: plan for elect stim, physical, occupational, rec and speech therapy Status: Acute
--- NOTE | 2018-07-29 16:56 | CP.PCM.PN ---
Subjective - Date & Time of Evaluation Date of Evaluation: 07/29/18 Time of Evaluation: 17:30 - Subjective Subjective: Patient seen and examined bedside. Sitting in chair in no acute distress. Hemodynamically stable, afebrile. Participating with PT and weakness to left side is improving Objective - Vital Signs/Intake and Output Vital Signs (last 24 hours): Temp Pulse Resp BP Pulse Ox 97.9 F 88 20 148/78 97 07/29/18 07:38 07/29/18 08:57 07/29/18 07:38 07/29/18 08:40 07/29/18 07:38 - Medications Medications: Current Medications Amlodipine Besylate (Norvasc) 10 mg PO DAILY [facility] Last Admin: 07/29/18 08:40 Dose: 10 mg Aspirin (Ecotrin) 81 mg PO DAILY [facility] Last Admin: 07/29/18 08:39 Dose: 81 mg Enoxaparin Sodium (Lovenox) 40 mg SC DAILY [facility]; Protocol Last Admin: 07/29/18 08:39 Dose: 40 mg Lisinopril (Zestril) 10 mg PO DAILY [facility] Last Admin: 07/29/18 08:40 Dose: 10 mg - Labs Labs: 07/27/18 05:50 07/27/18 05:50 PT 12.5 Seconds (9.8-13.1) 07/21/18 05:30 INR 1.1 07/21/18 05:30 APTT 32.5 Seconds (25.6-37.1) 07/21/18 05:30 - Constitutional Appears: Non-toxic, No Acute Distress - Head Exam Head Exam: ATRAUMATIC, NORMOCEPHALIC - Eye Exam Eye Exam: EOMI, PERRL Pupil Exam: NORMAL ACCOMODATION - ENT Exam ENT Exam: Mucous Membranes Moist, Normal Exam - Neck Exam Neck Exam: Full ROM, Normal Inspection - Respiratory Exam Respiratory Exam: Clear to Ausculation Bilateral, NORMAL BREATHING PATTERN. absent: Rales, Rhonchi, Wheezes - Cardiovascular Exam Cardiovascular Exam: REGULAR RHYTHM, RRR, +S1, +S2. absent: JVD - GI/Abdominal Exam GI & Abdominal Exam: Soft, Normal Bowel Sounds. absent: Distended, Guarding, Tenderness, Rebound - Rectal Exam Rectal Exam: Deferred - Extremities Exam Extremities Exam: Normal Capillary Refill, Normal Inspection. absent: Pedal Edema - Neurological Exam Neurological Exam: Alert, Awake, CN II-XII Intact, Oriented x3 Additional comments: left side weakness - Psychiatric Exam Psychiatric exam: Normal Affect - Skin Skin Exam: Dry, Warm Assessment and Plan - Assessment and Plan (Free Text) Assessment: 68 yo female with history of HTN but not on any treatments , was admitted at [facility] on the 07/19/18 because of left sided weakness secondary to Acute CVA. She was transferred to Acute Rehab when hemodynamically and neurologically stable for therapy and continuation of medical management. At present participating withPT and left sided weakness is improving 1. Acute Right CVA with left side weakness Left side weakness is improving continue PT/OT refused statin continue ASA 2. HTN BP slightly elevated continue Amlodipine and Lisinopril 3. DVT prophylaxis on Lovenox
[2018-07-30 07:20] LABS: HEMOGLOBIN 12.6 g/dL (12.0-16.0); MEAN CELL VOLUME 83.5 fl (81.0-99.0); MEAN CORPUSCULAR HEMOGLOBIN 28.7 pg (27.0-31.0); MEAN CORPUSCULAR HGB CONC 34.4 g/dL (33.0-37.0); RBC 4.37 Mil/uL (3.80-5.20); WHITE BLOOD COUNT 7.3 K/uL (4.8-10.8)
[2018-07-30 07:28] LABS: BLOOD UREA NITROGEN 22 mg/dl (7-17); CALCIUM 9.8 mg/dL (8.4-10.2); GFR NON-AFRICAN AMERICAN > 60
[2018-07-30] MEDS: Enoxaparin 40 mg Syringe SC SCH (08:54)
[2018-07-31] MEDS: Enoxaparin 40 mg Syringe SC SCH (08:42)
[2018-08-01] MEDS: Enoxaparin 40 mg Syringe SC SCH (08:52)
--- NOTE | 2018-08-01 14:17 | CP.PCM.PN ---
Subjective - Date & Time of Evaluation Date of Evaluation: 08/01/18 Time of Evaluation: 14:14 - Subjective Subjective: Patient working with PT during encounter no acute events reported by nursing staff Objective - Vital Signs/Intake and Output Vital Signs (last 24 hours): Temp Pulse Resp BP Pulse Ox 97.5 F L 73 20 154/69 H 97 08/01/18 07:35 08/01/18 07:35 08/01/18 07:35 08/01/18 08:51 08/01/18 07:35 - Medications Medications: Current Medications Amlodipine Besylate (Norvasc) 10 mg PO DAILY [facility] Last Admin: 08/01/18 08:51 Dose: 10 mg Aspirin (Ecotrin) 81 mg PO DAILY [facility] Last Admin: 08/01/18 08:52 Dose: 81 mg Enoxaparin Sodium (Lovenox) 40 mg SC DAILY [facility]; Protocol Last Admin: 08/01/18 08:52 Dose: 40 mg Lisinopril (Zestril) 10 mg PO DAILY [facility] Last Admin: 08/01/18 08:51 Dose: 10 mg - Labs Labs: 07/30/18 05:30 07/30/18 05:30 PT 12.5 Seconds (9.8-13.1) 07/21/18 05:30 INR 1.1 07/21/18 05:30 APTT 32.5 Seconds (25.6-37.1) 07/21/18 05:30 - Constitutional Appears: Well, No Acute Distress - Head Exam Head Exam: NORMAL INSPECTION - Eye Exam Eye Exam: EOMI, PERRL - ENT Exam ENT Exam: Mucous Membranes Moist - Respiratory Exam Respiratory Exam: Clear to Ausculation Bilateral, NORMAL BREATHING PATTERN - Cardiovascular Exam Cardiovascular Exam: REGULAR RHYTHM - Neurological Exam Additional comments: mild left sided weakness Assessment and Plan - Assessment and Plan (Free Text) Plan: Assessment: 68 yo female with history of HTN but not on any treatments , was admitted at [facility] on the 07/19/18 because of left sided weakness secondary to Acute CVA. She was transferred to Acute Rehab when hemodynamically and neurologically stable for therapy and continuation of medical management. At present participating withPT and left sided weakness is improving 1. Acute Right CVA with left side weakness Left side weakness is improving continue PT/OT refused statin continue ASA 2. HTN BP slightly elevated continue Amlodipine and Lisinopril 3. DVT prophylaxis on Lovenox
[2018-08-02 07:19] LABS: HEMOGLOBIN 12.8 g/dL (12.0-16.0); MEAN CELL VOLUME 84.2 fl (81.0-99.0); MEAN CORPUSCULAR HEMOGLOBIN 28.6 pg (27.0-31.0); RBC 4.48 Mil/uL (3.80-5.20); WHITE BLOOD COUNT 7.9 K/uL (4.8-10.8)
[2018-08-02 07:30] LABS: BLOOD UREA NITROGEN 22 mg/dl (7-17); CALCIUM 9.9 mg/dL (8.4-10.2); GFR NON-AFRICAN AMERICAN > 60
[2018-08-02] MEDS: Enoxaparin 40 mg Syringe SC SCH (08:56)
--- NOTE | 2018-08-02 20:00 | CP.PCM.PN ---
Subjective - Date & Time of Evaluation Date of Evaluation: 08/01/18 Time of Evaluation: 13:00 - Subjective Subjective: no acute complaints at present Objective - Vital Signs/Intake and Output Vital Signs (last 24 hours): Temp Pulse Resp BP Pulse Ox 97.5 F L 78 20 155/84 H 99 08/02/18 07:34 08/02/18 09:23 08/02/18 07:34 08/02/18 08:56 08/02/18 07:34 - Medications Medications: Current Medications Amlodipine Besylate (Norvasc) 10 mg PO DAILY [facility] Last Admin: 08/02/18 08:55 Dose: 10 mg Aspirin (Ecotrin) 81 mg PO DAILY [facility] Last Admin: 08/02/18 08:56 Dose: 81 mg Enoxaparin Sodium (Lovenox) 40 mg SC DAILY [facility]; Protocol Last Admin: 08/02/18 08:56 Dose: 40 mg Lisinopril (Zestril) 10 mg PO DAILY [facility] Last Admin: 08/02/18 08:56 Dose: 10 mg - Labs Labs: 08/02/18 06:00 08/02/18 06:00 PT 12.5 Seconds (9.8-13.1) 07/21/18 05:30 INR 1.1 07/21/18 05:30 APTT 32.5 Seconds (25.6-37.1) 07/21/18 05:30 - Head Exam Head Exam: ATRAUMATIC, NORMAL INSPECTION, NORMOCEPHALIC - Eye Exam Eye Exam: EOMI, Normal appearance, PERRL Pupil Exam: NORMAL ACCOMODATION, PERRL - ENT Exam ENT Exam: Mucous Membranes Moist, Normal Exam - Neck Exam Neck Exam: Normal Inspection - Respiratory Exam Respiratory Exam: NORMAL BREATHING PATTERN - Cardiovascular Exam Cardiovascular Exam: REGULAR RHYTHM - GI/Abdominal Exam GI & Abdominal Exam: Normal Bowel Sounds - Rectal Exam Rectal Exam: NORMAL INSPECTION - Exam External exam: NORMAL EXTERNAL EXAM - Extremities Exam Extremities Exam: Normal Capillary Refill, Normal Inspection - Back Exam Back Exam: NORMAL INSPECTION - Neurological Exam Neurological Exam: Alert, Awake Neuro motor strength exam: Left Upper Extremity: 3, Left Lower Extremity: 3 - Psychiatric Exam Psychiatric exam: Normal Affect - Skin Skin Exam: Normal Color, Warm Assessment and Plan (1) CVA (cerebral vascular accident) Assessment & Plan: plan to continue with physical, occupational, rec and speech therapy Status: Acute
[2018-08-03] MEDS: Enoxaparin 40 mg Syringe SC SCH (08:47)
--- NOTE | 2018-08-03 12:11 | PCM.PSYTMC ---
Acute Rehab Team Conference - - Vital Signs: Vital Signs (Last 8 Hours): Vital Signs 08/03/18 08/03/18 08/03/18 08:38 08:46 08:47 Temperature 98.0 F Pulse Rate 88 88 88 Respiratory 20 Rate Blood Pressure 151/76 H 151/76 H 151/76 H O2 Sat by Pulse 98 Oximetry 08/03/18 12:04 Temperature 98 F Pulse Rate 88 Respiratory 20 Rate Blood Pressure 151/76 H O2 Sat by Pulse Oximetry Pain: 0 - Precautions: Precautions: Fall Prevention, Aspiration - Medications/Other Issues: Comment: Lovenox - Consults: Comment: - Toileting: Toileting: Minimal Assistance - Bladder Management: Bladder Pattern: Normal Voiding Method: Toilet Bladder Management: Supervision Other Intervention:: no incontinence/no accident/ - Transfers: Transfers: Minimal Assistance - ADL's: ADL's: Minimal Assistance - Pain Management: Other Intervention:: denies - Patient/Family Teaching: Other Intervention:: fall precaution & safety, medications - Goals/Time Frame: Comment: fall prevention Physical Therapy - Bed Mobility Bed Mobility: Contact Guard - Transfers Wheelchair to Mat: Contact Guard Sit to Stand: Supervision - Ambulation Level of Assistance: Verbal Cues, Contact Guard Distance (ft.): 150 Assistive Devices: Narrow base quad cane Orthoses: utilize R df assist MICHELET wrap - Stair Negotiation Stairs: Level of Assistance: Verbal Cues, Contact Guard Number of Stairs: 12 Handrails: Right Stairs: Assistive Devices: Right Handrail, Narrow base quad cane - Standing Balance Static Stand: Supervision Comment: w/ NBQC - Pain Pain (assessed during therapy session): 0 - Insight/Carryover Insight/Carryover: Good - Patient/Family Education Comment: Caregiver training with ; reviewed guarding techniques, cues for safety, and d/c recommendations including DME (NBQC, transport WC, AFO) - Assessment/Plan Assessment: Completed caregiver training with pts (Emerson) on 08/02/18. practiced assisting pt with transfrers, gait, and stair negotiation with propr safety awareness noted. Miky from [employer] came and assessed pt with recommendation of anterior carbon fiber AFO, to be delivered Wednesday. Pt will continue to benefit from skilled PT interventions to address deficits, reduce fall risk, and maximize functional independence. Recommending S/assist for all mobility. Recommend transport WC for community at this time. [ End ] - Goals Tiimeframe: 10 days Goals: Sit < > supine mod I. sit < > stand mod I. Bed < > chair transfers with supervision. Pt will ambulate 300 ft with NBQC and S with use of AFO. Pt will ascend/descend flight of stairs with handrail and supervision - Provider Physical Therapist:: Ivanna Falk License Number:: [id number] Occupational Therapy - Arousal/Attention/Orientation Level of Consciousness: Awake, Alert, Forgetful Patient Orientation: Person, Place, Time - ADL/IADL Self Feeding: Set-up Help Grooming: Set-up Help Bathing-Upper Ext: Supervision Dressing-Upper Ext: Supervision, Verbal Cues, Contact Guard Dressing-Lower Ext: Supervision, Contact Guard - Sitting Balance Static Sitting: Supervision Dynamic Sitting: Requires supervision - Transfers Wheelchair to Bed Transfers: Contact Guard Toilet Transfers: Contact Guard Tub Transfers: Contact Guard Comment: pt uses tub transfer bench - Wheelchair Management Level of Assistance: Modified Independent Distance (ft.): 150 - Upper Extremity Status Right Upper Extremity Comment: AROM WFLs Left Upper Extremity Comment: PROM WFLs. AROM 2+/5 shoulder, elbow, wrist, digits - Pain Pain (assessed during therapy session): 0 - Insight/Carryover Insight/Carryover: Fair - Patient/Family Education Comment: caregiver training completed 08/02 with pt's , thorough education given on appropriate dme/ae, and d/c recs, - Assessment/Plan Assessment: Patient is a 68 yo f s/p acute CVA. patient presenting LUE/LE weakness, decreased ROM/strength, impaired dynamic standing balance, impaired activity tolerance, impaired insight into defecits, decreased safety awarenes impacting pt;s ability to complete ADLs safely and effectively. patient making gains in therapy and is able to complete ub ADLs with supervsision , lb adls with cs/cga, 2' decreased rOM/strength LUE. caregiver training completed 08/02/18. recommended dme/ae: 3 in 1 commode, tub transfer bench, hip kit, elastic shoe laces, pts verbalizing understanding , recommend 24/7 superivsion intermittent assist with iadls/adls PRN. recommend cont skilled OT services 5-6x/week as per plan of care. - Goals Timeframe: 5 days - Provider Occupational Therapist:: Jocelyne Mary License Number: [id number] Recreational Therapy - Participation Participation: Participates in Individual and/or Group Sessions - Attendance Attendance: 3-5 times per week - Activities Leisure Activities: Cards and Games - Socialization Level of Socialization: Initiates/interacts freely with care givers and peer - Diversional Time Diversional Time: reading, socializing, participating in therapy sessions - Assessment Assessment/Plan: Pt is agreeable to participate in recreation therapy sessions throughout stay on unit. Pt has participated in sequencing and direction following tasks such as guess who, connect four, and kings in the corner. Pt demonstrated improved direction following, turn taking, sequencing, and recalls task rules. Pt also enjoyed going outside for diversion and engaged in discussion. Pt will continue to benefit from participating in recreation therapy sessions to improve sequencing, direction following, and leisure awareness level. Problems Currently Limiting Participation: L side weakness UE and LE, decrease leisure awareness level, anxiety Goals and Time Frame: Pt will be encouraged to participate in 1:1 and group recreation therapy sessions 3-5x week to improve leisure awareness level, attent ion to task, direction following, arousal level, mood state, and decrease anxiety level. - Provider Therapist: Megan Mir Nutrition - Current Diet Current Diet/Supplement/Feedings: 2 gram Na low fat/low cholesterol thin liquids - Appetite Percent Meal Consumed: 75-100% - Assessment/Goals/Time Frame Assessments/Goals/Time Frame: Pt at low nutritional risk. no goals. Follow-up due on 08/05/2018 - Provider Provider: Belinda Degroot Case Management - Psychosocial Assessment Support Systems: Emerson Payne (spouse)- [phone] Psychological Interventions/Needs: Patient is AAO x3 and able to verbalize needs. Discharge Concerns: Patient will likely require 24 hour supervision/assist at home. Patient demonstrates difficulty with L foot clearance Patient/Family Meeting: CM met with patient/family and rehab team Intervention/Goal/Outcome: 1. Goal: 24 hour supervision/assist overall. 2. Plan: Home with VNS and family support- rehab team recommendations discussed with family and understands that patient will likely require assist with gait and transfers at home. Caregiver training with spouse arranged for Thursday 08/02 at 10am- spouse to stay for PT and OT training. 3. DME needs. 4. f/u appts. 5. continued emotional support. 6. tentative discharge date: 08/06? - Discharge Plan Discharge Plan: Home with significant other/family - Provider Provider: Alysia Tomlinson License Number: [id number] Rehabilitation Plan - Treatment Plan Treatment Plan: Physical Therapy, Occupational Therapy, Dietary, Patient/Family Education - Recommendation Recommendation: Physical Therapy, Occupational Therapy, Dietary - Discharge Plan Discharge to: Home (dc aug 06)
--- NOTE | 2018-08-03 13:30 | CP.PCM.PN ---
Subjective - Date & Time of Evaluation Date of Evaluation: 08/03/18 Time of Evaluation: 13:28 - Subjective Subjective: doing well; participating with PT able to ambulate with a cane Objective - Vital Signs/Intake and Output Vital Signs (last 24 hours): Temp Pulse Resp BP Pulse Ox 98 F 88 20 151/76 H 98 08/03/18 12:04 08/03/18 12:04 08/03/18 12:04 08/03/18 12:04 08/03/18 08:38 - Medications Medications: Current Medications Amlodipine Besylate (Norvasc) 10 mg PO DAILY [facility] Last Admin: 08/03/18 08:46 Dose: 10 mg Aspirin (Ecotrin) 81 mg PO DAILY [facility] Last Admin: 08/03/18 08:46 Dose: 81 mg Enoxaparin Sodium (Lovenox) 40 mg SC DAILY [facility]; Protocol Last Admin: 08/03/18 08:47 Dose: 40 mg Lisinopril (Zestril) 10 mg PO DAILY [facility] Last Admin: 08/03/18 08:47 Dose: 10 mg - Labs Labs: 08/02/18 06:00 08/02/18 06:00 PT 12.5 Seconds (9.8-13.1) 07/21/18 05:30 INR 1.1 07/21/18 05:30 APTT 32.5 Seconds (25.6-37.1) 07/21/18 05:30 - Constitutional Appears: No Acute Distress - Head Exam Head Exam: NORMAL INSPECTION - Eye Exam Eye Exam: EOMI, PERRL - ENT Exam ENT Exam: Mucous Membranes Moist - Respiratory Exam Respiratory Exam: Clear to Ausculation Bilateral, NORMAL BREATHING PATTERN - Cardiovascular Exam Cardiovascular Exam: REGULAR RHYTHM - GI/Abdominal Exam GI & Abdominal Exam: Soft, Normal Bowel Sounds - Neurological Exam Neurological Exam: Alert, Oriented x3 Additional comments: LUE/LLE weakness improving Assessment and Plan - Assessment and Plan (Free Text) Assessment: Assessment: 68 yo female with history of HTN but not on any treatments , was admitted at [facility] on the 07/19/18 because of left sided weakness secondary to Acute CVA. She was transferred to Acute Rehab when hemodynamically and neurologically stable for therapy and continuation of medical management. Patient participating with PT and left sided weakness is improving 1. Acute Right CVA with left side weakness Left side weakness is improving continue PT/OT refused statin continue ASA 2. HTN BP slightly elevated despite Norvasc 10 PO qd and Lisinopril 10 mg PO qd continue Amlodipine and Lisinopril but may increase dosage of Lisinopril if continues to be elevated 3. DVT prophylaxis on Lovenox
--- NOTE | 2018-08-03 18:47 | CP.PCM.PN ---
Subjective - Date & Time of Evaluation Date of Evaluation: 08/03/18 Time of Evaluation: 12:00 - Subjective Subjective: no acute complaints at present Objective - Vital Signs/Intake and Output Vital Signs (last 24 hours): Temp Pulse Resp BP Pulse Ox 98 F 88 20 151/76 H 98 08/03/18 12:04 08/03/18 12:04 08/03/18 12:04 08/03/18 12:04 08/03/18 08:38 - Medications Medications: Current Medications Amlodipine Besylate (Norvasc) 10 mg PO DAILY [facility] Last Admin: 08/03/18 08:46 Dose: 10 mg Aspirin (Ecotrin) 81 mg PO DAILY [facility] Last Admin: 08/03/18 08:46 Dose: 81 mg Enoxaparin Sodium (Lovenox) 40 mg SC DAILY [facility]; Protocol Last Admin: 08/03/18 08:47 Dose: 40 mg Lisinopril (Zestril) 10 mg PO DAILY [facility] Last Admin: 08/03/18 08:47 Dose: 10 mg - Labs Labs: 08/02/18 06:00 08/02/18 06:00 PT 12.5 Seconds (9.8-13.1) 07/21/18 05:30 INR 1.1 07/21/18 05:30 APTT 32.5 Seconds (25.6-37.1) 07/21/18 05:30 - Head Exam Head Exam: ATRAUMATIC, NORMAL INSPECTION, NORMOCEPHALIC - Eye Exam Eye Exam: EOMI, Normal appearance Pupil Exam: NORMAL ACCOMODATION, PERRL - ENT Exam ENT Exam: Normal Exam - Neck Exam Neck Exam: Normal Inspection - Respiratory Exam Respiratory Exam: Clear to Ausculation Bilateral - Cardiovascular Exam Cardiovascular Exam: REGULAR RHYTHM - GI/Abdominal Exam GI & Abdominal Exam: Soft, Normal Bowel Sounds - Rectal Exam Rectal Exam: NORMAL INSPECTION - Exam External exam: NORMAL EXTERNAL EXAM - Extremities Exam Extremities Exam: Full ROM, Normal Capillary Refill - Back Exam Back Exam: NORMAL INSPECTION - Neurological Exam Neurological Exam: Alert, Awake Neuro motor strength exam: Left Upper Extremity: 3, Right Upper Extremity: 3, Left Lower Extremity: 3, Right Lower Extremity: 3 - Psychiatric Exam Psychiatric exam: Normal Affect, Normal Mood - Skin Skin Exam: Dry, Normal Color Assessment and Plan (1) CVA (cerebral vascular accident) Assessment & Plan: status post team conference, discussed Dc plan for aug 06 status post, Po, ot additional services after DC Status: Acute
[2018-08-04] MEDS: Enoxaparin 40 mg Syringe SC SCH (08:16)
[2018-08-05 06:28] LABS: HEMOGLOBIN 12.3 g/dL (12.0-16.0); MEAN CELL VOLUME 82.5 fl (81.0-99.0); MEAN CORPUSCULAR HEMOGLOBIN 28.6 pg (27.0-31.0); MEAN CORPUSCULAR HGB CONC 34.7 g/dL (33.0-37.0); RBC 4.31 Mil/uL (3.80-5.20); RED CELL DISTRIBUTION WIDTH 14.5 % (11.5-14.5); WHITE BLOOD COUNT 8.6 K/uL (4.8-10.8)
[2018-08-05 06:40] LABS: BLOOD UREA NITROGEN 19 mg/dl (7-17); CALCIUM 10.1 mg/dL (8.4-10.2); GFR NON-AFRICAN AMERICAN > 60
[2018-08-05] MEDS: Enoxaparin 40 mg Syringe SC SCH (08:47)
--- NOTE | 2018-08-05 11:42 | CP.PCM.PN ---
Subjective - Date & Time of Evaluation Date of Evaluation: 08/04/18 Time of Evaluation: 20:00 - Subjective Subjective: no acute complaints at present Objective - Vital Signs/Intake and Output Vital Signs (last 24 hours): Temp Pulse Resp BP Pulse Ox 98.1 F 80 20 120/80 96 08/04/18 20:14 08/05/18 08:47 08/04/18 20:14 08/05/18 08:47 08/04/18 20:14 - Medications Medications: Current Medications Amlodipine Besylate (Norvasc) 10 mg PO DAILY [facility] Last Admin: 08/05/18 08:47 Dose: 10 mg Aspirin (Ecotrin) 81 mg PO DAILY [facility] Last Admin: 08/05/18 08:46 Dose: 81 mg Enoxaparin Sodium (Lovenox) 40 mg SC DAILY [facility]; Protocol Last Admin: 08/05/18 08:47 Dose: 40 mg Lisinopril (Zestril) 10 mg PO DAILY [facility] Last Admin: 08/05/18 08:46 Dose: 10 mg - Labs Labs: 08/05/18 05:20 08/05/18 05:20 PT 12.5 Seconds (9.8-13.1) 07/21/18 05:30 INR 1.1 07/21/18 05:30 APTT 32.5 Seconds (25.6-37.1) 07/21/18 05:30 - Head Exam Head Exam: ATRAUMATIC, NORMAL INSPECTION, NORMOCEPHALIC - Eye Exam Eye Exam: EOMI, Normal appearance, PERRL Pupil Exam: NORMAL ACCOMODATION - ENT Exam ENT Exam: Mucous Membranes Moist, Normal Exam - Neck Exam Neck Exam: Full ROM - Respiratory Exam Respiratory Exam: Clear to Ausculation Bilateral, NORMAL BREATHING PATTERN - Cardiovascular Exam Cardiovascular Exam: REGULAR RHYTHM - GI/Abdominal Exam GI & Abdominal Exam: Soft, Normal Bowel Sounds - Rectal Exam Rectal Exam: NORMAL INSPECTION - Exam External exam: NORMAL EXTERNAL EXAM - Extremities Exam Extremities Exam: Full ROM, Normal Capillary Refill, Normal Inspection - Back Exam Back Exam: NORMAL INSPECTION - Neurological Exam Neurological Exam: Alert, Awake - Psychiatric Exam Psychiatric exam: Normal Affect, Normal Mood - Skin Skin Exam: Dry, Intact, Normal Color Assessment and Plan (1) CVA (cerebral vascular accident) Assessment & Plan: plan for physical, occupational, rec and speech therapy Status: Acute
--- NOTE | 2018-08-05 11:46 | CP.PCM.PN ---
Subjective - Date & Time of Evaluation Date of Evaluation: 08/05/18 Time of Evaluation: 11:00 - Subjective Subjective: no acute complaints of pain, discussed D planning Objective - Vital Signs/Intake and Output Vital Signs (last 24 hours): Temp Pulse Resp BP Pulse Ox 98.1 F 80 20 120/80 96 08/04/18 20:14 08/05/18 08:47 08/04/18 20:14 08/05/18 08:47 08/04/18 20:14 - Medications Medications: Current Medications Amlodipine Besylate (Norvasc) 10 mg PO DAILY [facility] Last Admin: 08/05/18 08:47 Dose: 10 mg Aspirin (Ecotrin) 81 mg PO DAILY [facility] Last Admin: 08/05/18 08:46 Dose: 81 mg Enoxaparin Sodium (Lovenox) 40 mg SC DAILY [facility]; Protocol Last Admin: 08/05/18 08:47 Dose: 40 mg Lisinopril (Zestril) 10 mg PO DAILY [facility] Last Admin: 08/05/18 08:46 Dose: 10 mg - Labs Labs: 08/05/18 05:20 08/05/18 05:20 PT 12.5 Seconds (9.8-13.1) 07/21/18 05:30 INR 1.1 07/21/18 05:30 APTT 32.5 Seconds (25.6-37.1) 07/21/18 05:30 - Head Exam Head Exam: ATRAUMATIC, NORMAL INSPECTION, NORMOCEPHALIC - Eye Exam Eye Exam: EOMI, Normal appearance, PERRL Pupil Exam: NORMAL ACCOMODATION - ENT Exam ENT Exam: Mucous Membranes Moist, Normal Exam - Neck Exam Neck Exam: Full ROM, Normal Inspection - Respiratory Exam Respiratory Exam: NORMAL BREATHING PATTERN - Cardiovascular Exam Cardiovascular Exam: REGULAR RHYTHM - GI/Abdominal Exam GI & Abdominal Exam: Soft, Normal Bowel Sounds - Rectal Exam Rectal Exam: NORMAL INSPECTION - Exam External exam: NORMAL EXTERNAL EXAM - Extremities Exam Extremities Exam: Full ROM, Normal Capillary Refill - Back Exam Back Exam: NORMAL INSPECTION - Neurological Exam Neurological Exam: Alert, Awake Neuro motor strength exam: Left Upper Extremity: 2/1, Left Lower Extremity: 2/1 - Psychiatric Exam Psychiatric exam: Normal Affect, Normal Mood - Skin Skin Exam: Normal Color Assessment and Plan (1) CVA (cerebral vascular accident) Assessment & Plan: plan for discharge tomorrow additional services after Dc and equipment needs discussed Status: Acute
[2018-08-06 07:42] VITALS: BP 146/77; PULSE 79; RESP 18; TEMP 97.9; O2SAT 98
[2018-08-06] MEDS: Enoxaparin 40 mg Syringe SC SCH (08:36)
--- NOTE | 2018-08-06 10:10 | CP.PCM.DIS ---
Provider - Provider Date of Admission: 07/20/18 20:31 Attending physician: Alber Self Consults: Dr Zheng Time Spent in preparation of Discharge (in minutes): 25 Diagnosis - Discharge Diagnosis (1) CVA (cerebral vascular accident) Status: Acute Comment: continue Lipitor and ASA daily (2) HTN (hypertension) Status: Chronic Comment: BP stable. continue Norvasc and Lisinopril Hospital Course - Lab Results Lab Results: Most Recent Lab Values WBC 8.6 K/uL (4.8-10.8) 08/05/18 05:20 RBC 4.31 Mil/uL (3.80-5.20) 08/05/18 05:20 Hgb 12.3 g/dL (12.0-16.0) 08/05/18 05:20 Hct 35.6 % (34.0-47.0) 08/05/18 05:20 MCV 82.5 fl (81.0-99.0) 08/05/18 05:20 MCH 28.6 pg (27.0-31.0) 08/05/18 05:20 MCHC 34.7 g/dL (33.0-37.0) 08/05/18 05:20 RDW 14.5 % (11.5-14.5) 08/05/18 05:20 Plt Count 298 K/uL (130-400) 08/05/18 05:20 MPV 8.5 fl (7.2-11.7) 07/21/18 05:30 Neut % (Auto) 48.7 % (50.0-75.0) L 07/21/18 05:30 Lymph % (Auto) 40.5 % (20.0-40.0) H 07/21/18 05:30 [place] % (Auto) 6.4 % (0.0-10.0) 07/21/18 05:30 Eos % (Auto) 3.6 % (0.0-4.0) 07/21/18 05:30 Baso % (Auto) 0.8 % (0.0-2.0) 07/21/18 05:30 Neut # (Auto) 4.3 K/uL (1.8-7.0) 07/21/18 05:30 Lymph # (Auto) 3.6 K/uL (1.0-4.3) 07/21/18 05:30 [place] # (Auto) 0.6 K/uL (0.0-0.8) 07/21/18 05:30 Eos # (Auto) 0.3 K/uL (0.0-0.7) 07/21/18 05:30 Baso # (Auto) 0.1 K/uL (0.0-0.2) 07/21/18 05:30 PT 12.5 Seconds (9.8-13.1) 07/21/18 05:30 INR 1.1 07/21/18 05:30 APTT 32.5 Seconds (25.6-37.1) 07/21/18 05:30 Sodium 142 mmol/l (132-148) 08/05/18 05:20 Potassium 4.2 MMOL/L (3.6-5.0) 08/05/18 05:20 Chloride 105 mmol/L (98-107) 08/05/18 05:20 Carbon Dioxide 29 mmol/L (22-30) 08/05/18 05:20 Anion Gap 12 (10-20) 08/05/18 05:20 BUN 19 mg/dl (7-17) H 08/05/18 05:20 Creatinine 0.7 mg/dl (0.7-1.2) 08/05/18 05:20 Est GFR ( Amer) > 60 08/05/18 05:20 Est GFR (Non-Af Amer) > 60 08/05/18 05:20 Random Glucose 102 mg/dL (65-105) 08/05/18 05:20 Calcium 10.1 mg/dL (8.4-10.2) 08/05/18 05:20 - Hospital Course Hospital Course: 68 yo female with history of HTN but not medicated was admitted at the [facility] on the 07/19/18 because of left sided weakness secondary to Acute CVA. She was transferred to Acute Rehab when hemodynamically and neurologically stable for therapy and continuation of medical management. Patient did well and now is ready for discharge. Discharge Exam - Head Exam Head Exam: ATRAUMATIC, NORMAL INSPECTION, NORMOCEPHALIC Discharge Plan - Follow Up Plan Condition: GOOD Disposition: HOME/ ROUTINE Instructions: Stroke (DC), Recovery After Stroke, Caring for a Loved One After a Stroke
== END 2018-08-06 12:00 | disposition home health service (06) | DRG 57 ==
PROVIDERS: ADMIT Internal Medicine; ATTEND Internal Medicine
PROC: F07Z9FZ Gait Training/Functional Ambulation Treatment using Assistive, Adaptive, Supportive or Protective Equipment (ICD-10-PCS; principal; 2018-07-21)
PROC: F07M6FZ Therapeutic Exercise Treatment of Musculoskeletal System - Whole Body using Assistive, Adaptive, Supportive or Protective Equipment (ICD-10-PCS; 2018-07-21)
PROC: F08Z4FZ Home Management Treatment using Assistive, Adaptive, Supportive or Protective Equipment (ICD-10-PCS; 2018-07-21)
DX: I69.354 Hemiplegia and hemiparesis following cerebral infarction affecting left non-dominant side (principal); Z79.82 Long term (current) use of aspirin; Z82.49 Family history of ischemic heart disease and other diseases of the circulatory system; Z83.3 Family history of diabetes mellitus; I10 Essential (primary) hypertension